=== PATIENT | female | born 1975 ===

== ENCOUNTER 2019-12-11 14:19 | Emergency (ER) | payer SELFPAY ==
[2019-12-11] MEDS ORDERED: NA CHLORIDE 0.9% 1,000 ML ONE ×2 (14:59→18:24)
[2019-12-11] MEDS ORDERED: ONDANSETRON 4 MG/2 ML VIAL ONE (14:59)
[2019-12-11] MEDS ORDERED: MORPHINE 4 MG/ML SYR ONE ×2 (14:59→15:28)
[2019-12-11 15:43] LABS: Absolute Lymphocytes (CBC) 1.9 K/uL (0.7-4.9); Basophils % 0.3 % (0-1.3); Hematocrit 40.4 % (36.0-45.0); Lymphocytes % 16.3 % (15.3-44.8); MPV 9.1 fL (7.6-11.3); RBC Red Blood Cell Count 4.67 M/uL (3.86-4.86)
[2019-12-11 15:59] LABS: ALT/SGPT 18 U/L (12-78); AST/SGOT 13 U/L (15-37); Albumin 3.8 g/dL (3.4-5.0); Alkaline Phosphatase 111 U/L (45-117); BUN Blood Urea Nitrogen 11 mg/dL (7-18); Bicarbonate 26 mmol/L (21-32); Bilirubin Direct < 0.1 mg/dL (0-0.2); Bilirubin Total 0.2 mg/dL (0.2-1.0); Glucose Level 113 mg/dL (74-106); Lipase 91 U/L (73-393); Potassium 3.7 mmol/L (3.5-5.1); Protein, Total 7.5 g/dL (6.4-8.2); Sodium Level 140 mmol/L (136-145)
[2019-12-11] MEDS ORDERED: KETOROLAC 30 MG/ML INJ ONE (16:12)
--- NOTE | 2019-12-11 16:34 | RAD REPORT ---
EXAM DESCRIPTION: CT - Stone Protocol - 12/11/2019 4:17 pm CLINICAL HISTORY: FLANK PAIN COMPARISON: No comparisons TECHNIQUE: Axial 3 mm thick images were obtained without oral or IV contrast. The [id number] span s the entirety of the system including uppermost abdomen and lung bases. All CT scans are performed using dose optimization technique as appropriate and may include automated exposure control or mA/KV adjustment according to patient size. FINDINGS: Left-sided moderate hydronephrosis of the pelvis and calices present secondary to an 9 mm UPJ calcification. When viewed from a KUB projection the stone is in proximity to the L2 left transve rse process tip. No other obstructing calculi on the left. Patient has non obstructing bilateral daya x calculi 1-3 mm in size. Left kidney is edematous relative to the left. No suspicious renal masses. Isodense masses and pyelonephritis are not excluded on a stone protocol C T scan. No significant adrenal finding. No urinary bladder suspicious finding. Uterus and ovaries judi w no suspicious findings. Imaged portions of the liver, spleen and pancreas show no suspicious findings on non-contrast imaging . No gallbladder or biliary tree abnormality identified. No suspicious bowel findings. Appendix is normal. No hernia, mass or bulky lymphadenopathy noted. No free air, free fluid or pneumatosis. No significant bony abnormality. No acute vascular finding on noncontrast imaging. IMPRESSION: Moderate hydronephrosis of the left side pelvis and calices secondary to a 9 mm obstruct ing UPJ calculus. Bilateral nonobstructing 1-3 mm calyx calculi. Isodense masses and pyelonephritis are not excluded on stone protocol technique.
--- NOTE | 2019-12-11 16:51 | ER ---
Nurse's Notes [facility] Name: Radha Davis Age: 44 yrs Sex: Female : 1975 Arrival Date: 12/11/2019 Time: 14:24 Bed 20 Private MD: Diagnosis: Hydronephrosis with renal and ureteral calculous obstruction Presentation: 12/10 14:44 Chief complaint: Patient states: Left lower back pain for 2 hours with N/V. Actively ll1 vomiting during triage. Coronavirus screen: Proceed with normal triage. Patient denies a cough. Patient denies shortness of breath or difficulty breathing. Patient denies measured and/or subjective temperature greater than 100.4F prior to today's visit. Patient denies travel on a cruise ship or to a country the [facility] currently lists as an affected area. Patient denies contact with known and/or suspected case of COVID-19. Ebola Screen: Patient denies travel to an Ebola-affected area in the 21 days before illness onset. Initial Sepsis Screen: Does the patient meet any 2 criteria? No. Patient's initial sepsis screen is negative. Does the patient have a suspected source of infection? No. Patient's initial sepsis screen is negative. Risk Assessment: Do you want to hurt yourself or someone else? Patient reports no desire to harm self or others. Onset of symptoms was December 11, 2019. 14:44 Method Of Arrival: Ambulatory ll1 14:44 Acuity: DIGNA 3 ll1 Historical: - Allergies: 14:46 No Known Allergies; ll1 - PMHx: 14:46 None; ll1 - PSHx: 14:46 ; ll1 - Social history:: Smoking status: Patient denies any tobacco usage or history of. Patient/guardian denies using alcohol, street drugs, tobacco products. Screenin:55 Abuse screen: Denies threats or abuse. Nutritional screening: No deficits noted. aa5 Tuberculosis screening: No symptoms or risk factors identified. Fall Risk IV access (20 points). Total Martin Fall Scale indicates No Risk (0-24 pts). Assessment: 14:55 General: Appears uncomfortable, Behavior is calm, cooperative. Pain: Complains of pain aa5 in left low back Pain radiates to left lower quadrant Pain currently is 10 out of 10 on a pain scale. Quality of pain is described as sharp, shooting, Is continuous. Neuro: Level of Consciousness is awake, alert, obeys commands, Oriented to person, place, time, situation. Cardiovascular: Heart tones S1 S2 present Patient's skin is warm and dry. Rhythm is regular. Respiratory: Airway is patent Respiratory effort is even, unlabored, Respiratory pattern is regular, symmetrical. GI: Abdomen is round non-distended, Bowel sounds present X 4 quads. Abd is soft and non tender X 4 quads. Reports nausea, vomiting. : Denies burning with urination, inability to void. EENT: No signs and/or symptoms were reported regarding the EENT system. Derm: Skin is pink, warm \T\ dry. Musculoskeletal: Range of motion: intact in all extremities. 16:05 Reassessment: Patient is alert, oriented x 3, equal unlabored respirations, skin aa5 warm/dry/pink. Pt to CT via wheelchair. 16:45 Reassessment: Patient is alert, oriented x 3, equal unlabored respirations, skin aa5 warm/dry/pink. [employer]ACHINE OPERATOR at bedside speaking to patient and explaining need to transfer to another facility. Pt verbalizes understanding. . 17:40 Reassessment: DESIREE Hidalgo speaking to [facility] attempting transfer. . aa5 17:43 Reassessment: Patient is alert, oriented x 3, equal unlabored respirations, skin aa5 warm/dry/pink. Denies nausea, reports pain 8/10 on a pain scale. . 17:56 Reassessment: Report given to KEVIN Byrne. aa5 Vital Signs: 14:44 BP 132 / 93; Pulse 70; Resp 18; Temp 98.0; Pulse Ox 97% ; Pain 10/10; ll1 16:30 BP 121 / 91; Pulse 80; Resp 16 S; Temp 98.3(O); Pulse Ox 97% on R/A; Pain 7/10; aa5 17:43 BP 105 / 73; Pulse 107; Resp 16 S; Temp 98.4(O); Pulse Ox 95% on R/A; Pain 8/10; aa5 ED Course: 14:24 Patient arrived in ED. bp1 14:42 Karissa Us, KEVIN is Primary Nurse. aa5 14:45 Triage completed. ll1 14:46 Arm band placed on Patient placed in an exam room, on a stretcher. ll1 14:47 [facility] pm1 14:48 Niko Xie MD is Attending Physician. pm1 14:55 Patient has correct armband on for positive identification. Placed in gown. Bed in low aa5 position. Call light in reach. Side rails up X2. Pulse ox on. NIBP on. 14:55 Inserted saline lock: 20 gauge in right antecubital area, using aseptic technique. aa5 Blood collected. 15:00 Radiology exam delayed due to test not completed at this time. bq 15:20 Initial lab(s) drawn, by me, sent to lab. Labs delayed due to waiting on registration aa5 to change pt's name to correct name. 16:17 CT Stone Protocol In Process Unspecified. EDMS Administered Medications: 14:55 Drug: NS 0.9% 1000 ml Route: IV; Rate: 1000 ml; Site: right antecubital; aa5 14:55 Drug: morphine 4 mg Route: IVP; Site: right antecubital; aa5 14:55 Drug: Zofran (Ondansetron) 4 mg Route: IVP; Site: right antecubital; aa5 15:25 Drug: morphine 4 mg Route: IVP; Site: right antecubital; aa5 16:04 Drug: TORadol - Ketorolac 15 mg Route: IVP; Site: right femoral; aa5 17:35 Drug: Rocephin 1 grams Route: IV; Rate: calculated rate; Site: right antecubital; aa5 17:45 Follow up: Response: No adverse reaction aa5 17:43 Drug: fentaNYL (PF) 50 mcg Route: IVP; Site: right antecubital; aa5 17:50 Follow up: Response: No adverse reaction aa5 18:00 Drug: NS 0.9% 1000 ml Route: IV; Rate: 125 ml/hr; Site: right antecubital; aa5 Outcome: 16:50 ER care complete, transfer ordered by . pm1 18:38 Patient left the ED. aa5 Signatures: Dispatcher [employer] EDMS Jessica Navas Audri, RN RN aa5 Sean Ta NP [employer] MACHINE OPERATOR pm1 Chelsea Triplett RN RN ll1 Nicki Adams bp1 Corrections: (The following items were deleted from the chart) 14:47 14:44 Chief complaint: Patient states: Left lower back pain for 2 hours with N/V. ll1 ll1 15:33 14:55 Initial lab(s) drawn, by me, sent to lab. aa5 aa5
--- NOTE | 2019-12-11 16:51 | EDPHYS ---
Physician Documentation [facility] Name: Radha Davis Age: 44 yrs Sex: Female : 1975 Arrival Date: 12/11/2019 Time: 14:24 Bed 20 Private MD: ED Physician Niko iXe HPI: 12/10 14:57 This 44 yrs old Female presents to ER via Ambulatory with complaints of Back Pain. pm1 14:57 The patient presents with pain that is acute, with no known mechanism of injury. The pm1 symptoms are located in the left low back. Onset: The symptoms/episode began/occurred today. The pain radiates to the suprapubic area. Associated signs and symptoms: Pertinent positives: nausea, vomiting, Pertinent negatives: chest pain, constipation, fever, headache, SOB. The problem was sustained feels like prior kidney stones. Modifying factors: The patient symptoms are alleviated by nothing, the patient symptoms are aggravated by nothing. Severity of symptoms: in the emergency department the symptoms are actually worse. The patient has experienced similar episodes in the past, a few times, and the symptoms today are exactly the same, to previous kidney stones. It is unknown whether or not the patient has recently seen a physician. Historical: - Allergies: 14:46 No Known Allergies; ll1 - PMHx: 14:46 None; ll1 - PSHx: 14:46 ; ll1 - Social history:: Smoking status: Patient denies any tobacco usage or history of. Patient/guardian denies using alcohol, street drugs, tobacco products. ROS: 14:57 Constitutional: Negative for fever, chills, and weight loss, Cardiovascular: Negative pm1 for chest pain, palpitations, and edema, Respiratory: Negative for shortness of breath, cough, wheezing, and pleuritic chest pain. 14:57 : Negative for injury, bleeding, discharge, and swelling, MS/Extremity: Negative for injury and deformity, Skin: Negative for injury, rash, and discoloration. 14:57 Neuro: Negative for headache, weakness, numbness, tingling, and seizure. 14:57 Abdomen/GI: Positive for abdominal pain, nausea, vomiting, of the suprapubic area, Negative for diarrhea, constipation. 14:57 Back: Positive for flank pain, on the left. Exam: 14:57 Constitutional: This is a well developed, well nourished patient who is awake, alert, pm1 and in no acute distress. Head/Face: Normocephalic, atraumatic. Chest/axilla: Normal chest wall appearance and motion. Nontender with no deformity. No lesions are appreciated. 14:57 Abdomen/GI: Soft, non-tender, with normal bowel sounds. No distension or tympany. No guarding or rebound. No evidence of tenderness throughout. 14:57 Skin: Warm, dry with normal turgor. Normal color with no rashes, no lesions, and no evidence of cellulitis. MS/ Extremity: Pulses equal, no cyanosis. Neurovascular intact. Full, normal range of motion. 14:57 Cardiovascular: Exam negative for acute changes, Rate: normal, Rhythm: regular, Pulses: no pulse deficits are appreciated. 14:57 Respiratory: Exam negative for acute changes, respiratory distress, shortness of breath. 14:57 Back: normal spinal alignment noted, CVA tenderness, that is moderate, is noted on the left. 14:57 Neuro: Exam negative for acute changes, Orientation: is normal, Mentation: is normal, Motor: moves all fours. Vital Signs: 14:44 BP 132 / 93; Pulse 70; Resp 18; Temp 98.0; Pulse Ox 97% ; Pain 10/10; ll1 16:30 BP 121 / 91; Pulse 80; Resp 16 S; Temp 98.3(O); Pulse Ox 97% on R/A; Pain 7/10; aa5 17:43 BP 105 / 73; Pulse 107; Resp 16 S; Temp 98.4(O); Pulse Ox 95% on R/A; Pain 8/10; aa5 MDM: 14:50 Patient medically screened. pm1 15:04 Data reviewed: vital signs. Data interpreted: Pulse oximetry: on room air is 97 %. pm1 Interpretation: normal. 16:48 Counseling: I had a detailed discussion with the patient and/or guardian regarding: the pm1 historical points, exam findings, and any diagnostic results supporting the discharge/admit diagnosis, lab results, radiology results, the need to transfer to another facility, [facility] does not immediately have the required specialist. 17:50 Physician consultation: MD Garcia was contacted at 17:52, regarding regarding transfer, pm1 patient's condition, and will see patient. 12/10 14:51 Order name: Basic Metabolic Panel; Complete Time: 16:04 pm12/10 14:51 Order name: CBC with Diff; Complete Time: 15:52 pm1 12/10 14:51 Order name: Hepatic Function; Complete Time: 16:04 pm12/10 14:51 Order name: Lipase; Complete Time: 16:04 pm12/10 14:51 Order name: Test, Serum; Complete Time: 15:58 pm12/10 16:39 Order name: Urine Microscopic Only 12/10 14:51 Order name: CT Stone Protocol; Complete Time: 16:38 pm12/10 17:14 Order name: Urine Culture 12/10 17:45 Order name: Urine Dipstick--Ancillary (enter results) em12/10 17:45 Order name: Urine --Ancillary (enter results) 12/10 14:51 Order name: IV Saline Lock; Complete Time: 14:59 pm12/10 14:51 Order name: Labs collected and sent; Complete Time: 14:59 pm12/10 14:51 Order name: Urine Dipstick-Ancillary (obtain specimen); Complete Time: 17:01 pm12/10 17:54 Order name: NPO; Complete Time: 17:58 pm1 Administered Medications: 14:55 Drug: NS 0.9% 1000 ml Route: IV; Rate: 1000 ml; Site: right antecubital; aa5 14:55 Drug: morphine 4 mg Route: IVP; Site: right antecubital; aa5 14:55 Drug: Zofran (Ondansetron) 4 mg Route: IVP; Site: right antecubital; aa5 15:25 Drug: morphine 4 mg Route: IVP; Site: right antecubital; aa5 16:04 Drug: TORadol - Ketorolac 15 mg Route: IVP; Site: right femoral; aa5 17:35 Drug: Rocephin 1 grams Route: IV; Rate: calculated rate; Site: right antecubital; aa5 17:45 Follow up: Response: No adverse reaction aa5 17:43 Drug: fentaNYL (PF) 50 mcg Route: IVP; Site: right antecubital; aa5 17:50 Follow up: Response: No adverse reaction aa5 18:00 Drug: NS 0.9% 1000 ml Route: IV; Rate: 125 ml/hr; Site: right antecubital; aa5 Disposition: 12/11/19 16:50 Transfer ordered to [facility]. Diagnosis is Hydronephrosis with renal and ureteral calculous obstruction. - Reason for transfer: Higher level of care. - Accepting physician is [facility] . - Condition is Stable. - Problem is new. - Symptoms have improved. Signatures: Dispatcher [employer] EDMS Karissa Us RN RN aa5 Sean Ta NP [employer] pm1 Chelsea Triplett RN RN ll1 Corrections: (The following items were deleted from the chart) 18:38 16:50 12/11/2019 16:50 Transfer ordered to [facility]. aa5 Diagnosis is Hydronephrosis with renal and ureteral calculous obstruction. Reason for transfer: Higher level of care. Accepting physician is [facility] . Condition is Stable. Problem is new. Symptoms have improved. pm1
[2019-12-11] MEDS ORDERED: CEFTRIAXONE/SWI 1gm 1 GM/10 ML SYR ONE (17:29)
[2019-12-11] MEDS ORDERED: FENTANYL CITR 100 MCG/2 ML ONE (17:50)
[2019-12-11 18:00] LABS: Urine Bacteria >50 /HPF (<20); Urine Culture Reflex Order NOT NEEDED
[2019-12-11 18:00] LABS: Urine Blood 2+ (NEG); Urine Glucose NEGATIVE (NEG); Urine Protein NEGATIVE (NEG); Urine Specific Gravity 1.025 (1.005-1.030)
[2019-12-11 18:47] VITALS: BP 105/73; TEMP 98.4; O2SAT 95
== END 2019-12-11 18:38 | disposition short-term general hospital (02) ==
LOC: ER 14:19
DX: N13.2 Hydronephrosis with renal and ureteral calculous obstruction (principal)
CPT/HCPCS: 36415; 74176; 76377; 80048; 80076; 81003; 81015; 81025; 83690; 84703; 85025; 87077; 87086; 87088; 87186; 99285; J0696; J2405; J3010; J7030